=== PATIENT | male | born 1935 | race Caucasian/White ===

== ENCOUNTER 2016-07-25 11:42 | Outpatient (CLI) | payer OTHER ==
--- NOTE | 2016-07-26 17:00 | DIAGNOSTIC IMAGING REPORT ---
REFERRING PHYSICIAN/PROVIDER: Merlyn Ratliff MD CONSULTING ASSURANCE ASSOCIATE: Charlie Red Jr MD PROCEDURE: M-mode 2D echocardiography with spectral and color flow Doppler TECHNICAL QUALITY: The study quality was adequate. INDICATION: DIZZINESS RHYTHM DURING PROCEDURE: The patient was in normal sinus rhythm during the exam of the bundle branch block. INTERPRETATIONS: Left Ventricle: The left ventricle is normal in size. There is mild concentric left ventricular hypertrophy. Left ventricular systolic function is normal without focal wall motion abnormalities. The ejection fraction is estimated to be 55-60%. Assessment of diastolic parameters indicates normal left ventricular diastolic function and normal filling pressures. Right Ventricle: The right ventricle grossly appears normal in size with probable normal systolic function. Atria: There is moderate biatrial enlargement. The interatrial septum is intact with no evidence for an atrial septal defect. 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 Mitral Valve: The mitral valve is normal in structure and function. There is no mitral regurgitation. Aortic Valve: The aortic valve is not well visualized. The aortic valve is mildly calcified. There is mild aortic stenosis. The calculated aortic valve area is 1.53 cm2. The peak aortic velocity is 1.93 m/sec. There is mild aortic regurgitation. Tricuspid Valve: The tricuspid valve is normal in structure and function. There is a trace or physiologic amount of tricuspid regurgitation. The right ventricular systolic pressure is estimated at 44 mmHg assuming a right atrial pressure of 3 mm Hg. Pulmonic Valve: The pulmonic valve is not well visualized. Great Vessels: The aortic root is mildly dilated. 4.5 cm. The ascending aorta is moderately enlarged. 4.7. The IVC is of normal diameter and collapses greater than 50% with a sniff. This suggests a low right atrial pressure of 3 mm Hg. Pericardium/ Pleura There is a small loculated pericardial effusion. IMPRESSION: 1. There is mild concentric left ventricular hypertrophy with normal LV systolic function without focal wall motion abnormalities. The ejection fraction is 55-60%. 2. The right ventricle grossly appears normal in size with probable normal systolic function. 3. There is moderate biatrial enlargement with thickening of the interatrial septum suggestive of lipomatous hypertrophy. 4. There is mild aortic stenosis with a valve area calculated at 1.53 cm2. 5. The aorta root is mildly dilated at 4.5 cm and the ascending aorta is moderately enlarged at 4.7 cm. 6. The right ventricular systolic pressure is 44 mmHg.
== END 2016-07-25 23:00 ==
LOC: US SRH 11:42
DX: I77.89 Other specified disorders of arteries and arterioles (principal)